=== PATIENT | male | born 1945 | race Caucasian/White ===

== ENCOUNTER 2019-03-25 16:08 | Emergency (ER) | payer MEDICARE, MEDICAID ==
[2019-03-25] MEDS ORDERED: Sodium Chloride 0.9% 10 ML Syringe FLUSH PRN (16:16)
--- NOTE | 2019-03-25 16:31 | EDM.PDOC ---
ED HPI GENERAL MEDICAL PROBLEM - General Chief Complaint: Neuro Symptoms/Deficits Stated Complaint: Slurred speech Time Seen by Provider: 03/25/19 16:10 Source of Information: Reports: Patient History Limitations: Reports: No Limitations - History of Present Illness INITIAL COMMENTS - FREE TEXT/NARRATIVE: 73 YO WM presents to ER with episode of slurred speech and right sided facial droop which began after waking up from a nap. states they layed down for a nap around 1pm and when he woke 2 hours later she noticed some slurred speech and right sided facial droop. Pt was able to walk to his vehicle and was transported by private car to ER. Upon arrival family states his facial droop and slurred speech improved. Pt denies headache, chest pain, dizziness or nausea /vomiting. Pt denies numbness or weakness. Pt without spacial neglect or ataxia. Pt alert and oriented x 4 with a GCS of 15. Pt able to move all extremities without difficulty. Pt with history of metastatic prostate CA. Onset Date: 03/25/19 Onset Time: 13:00 Location: Reports: Head, Face Improves with: Reports: None Worsens with: Reports: Medication Associated Symptoms: Denies: Confusion, Chest Pain, Cough, Diaphoresis, Fever/ Chills, Headaches, Nausea/Vomiting, Rash, Seizure, Shortness of Breath, Syncope , Weakness - Related Data Allergies Allergy/AdvReac Type Severity Reaction Status Date / Time banana Allergy Unknown Shortness Verified 03/25/19 18:03 of Breath latex Allergy Unknown Cannot Verified 03/25/19 18:03 Remember penicillin Allergy Unknown Rash Verified 03/25/19 18:03 Home Meds: Home Meds Valsartan [Diovan] 320 mg PO DAILY 03/01/15 [History] glipiZIDE [Glipizide Xl] 5 mg PO DAILY 03/01/15 [History] Cholecalciferol (Vitamin D3) [Vitamin D3] 3,000 units PO DAILY 11/16/15 [History ] Acetaminophen [Tylenol Extra Strength] 1,000 mg PO Q4H PRN 12/27/15 [History] Calcium Carb/Magnesium Cmb #10 [Orion-Mag] 2 each PO DAILY 12/27/15 [History] Cinnamon Bark [Cinnamon] 500 - 1,000 mg PO DAILY 12/27/15 [History] Ondansetron [Zofran ODT] 4 mg PO TID PRN 12/27/15 [History] atorvaSTATin [Lipitor] 20 mg PO BEDTIME 12/27/15 [History] metFORMIN HCl [Metformin HCl] 750 mg PO BID 12/27/15 [History] Alendronate [Fosamax] 70 mg PO Q7D 04/20/16 [History] Aspirin [Adult Low Dose Aspirin EC] 81 mg PO DAILY 04/20/16 [History] Iron Polysaccharides Complex [Ferrex 150] 300 mg PO DAILY 04/20/16 [History] [place]-3/DHA/Epa/Fish Oil [Fish Oil] 1,200 mg PO DAILY 04/20/16 [History] Diclofenac Sodium 75 mg PO BIDMEALS 08/05/16 [History] Levothyroxine Sodium 150 mcg PO ASDIRECTED 08/05/16 [History] Tamsulosin [Flomax] 0.8 mg PO DAILY 08/05/16 [History] Metoprolol Succinate [Toprol XL] 25 mg PO DAILY 08/19/16 [History] Mometasone Furoate [Nasonex Esko] 2 spray NASBOTH DAILY 03/24/17 [History] Prednisone [IJD: Prednisone] 10 mg PO DAILY 03/24/17 [History] DOCEtaxel [Docetaxel] 60 mg IV WEEKLY 02/22/19 [History] Degarelix [Firmagon] 80 mg SQ Q28D 03/08/19 [History] Zoledronic Acid [Zometa] 4 mg IV Q28D 03/08/19 [History] Past Medical History HEENT History: Reports: Hard of Hearing, Impaired Vision Cardiovascular History: Reports: Angina, High Cholesterol, Hypertension, VA, Stents Respiratory History: Reports: None Gastrointestinal History: Reports: None Genitourinary History: Reports: Prostate Disorder Other Genitourinary History: Treated for Prostate Cancer at [facility] first round of chemo done Wednesday Musculoskeletal History: Reports: Arthritis, Fracture, Other (See Below) Other Musculoskeletal History: Fell about 1 year ago, broke arm, rib, collar bone. Today voices of back trouble -(bulging) MRI in [place] shceduled on December. has been to visual merchandising specialist but due to recent VA has to wait 6 mo before any surgery can be done. Also voices of right foot pain and this is to be looked at by cardiovascular dr on December 21 in [place], Is using walker at home. Neurological History: Reports: CVA Endocrine/Metabolic History: Reports: Diabetes, Type II, Hypothyroidism, Obesity /BMI 30+ Immunologic History: Reports: Immunosuppression Oncologic (Cancer) History: Reports: Prostate - Infectious Disease History Infectious Disease History: Reports: None Other Infectious Disease History: had bad infection in throat wound following thyroidectomy treated with strongest antibiotic they had - Past Surgical History HEENT Surgical History: Reports: None Cardiovascular Surgical History: Reports: Carotid Stents, Other (See Below) GI Surgical History: Reports: Colonoscopy, Hernia, Inguinal Male Surgical History: Reports: Prostate Biopsy Endocrine Surgical History: Reports: None Neurological Surgical History: Reports: None Social & Family History - Family History Family Medical History: Noncontributory - Caffeine Use Caffeine Use: Reports: Soda ED ROS GENERAL - Review of Systems Review Of Systems: See Below Constitutional: Reports: No Symptoms HEENT: Reports: No Symptoms. Denies: Throat Swelling, Vision Change Respiratory: Reports: No Symptoms Cardiovascular: Reports: No Symptoms Endocrine: Reports: No Symptoms GI/Abdominal: Reports: No Symptoms : Reports: No Symptoms Musculoskeletal: Reports: No Symptoms Skin: Reports: No Symptoms Neurological: Reports: Change in Speech. Denies: Confusion, Dizziness, Headache , Numbness, Paresthesia, Pre-Existing Deficit, Seizure, Syncope, Tingling, Tremors, Trouble Speaking, Difficulty Walking, Weakness, Gait Disturbance Psychiatric: Reports: No Symptoms Hematologic/Lymphatic: Reports: No Symptoms Immunologic: Reports: No Symptoms ED EXAM, NEURO - Physical Exam Exam: See Below Exam Limited By: No Limitations General Appearance: Alert, WD/WN, No Apparent Distress Eye Exam: Bilateral Eye: EOMI, PERRL Throat/Mouth: Normal Inspection, Normal Lips, Normal Teeth, Normal Gums, Normal Oropharynx, Normal Voice, No Airway Compromise Head Exam: Atraumatic, Normocephalic Neck: Normal Inspection, Supple, Non-Tender, Full Range of Motion Respiratory/Chest: No Respiratory Distress, Lungs Clear, Normal Breath Sounds, No Accessory Muscle Use, Chest Non-Tender Cardiovascular: Normal Peripheral Pulses, Regular Rate, Rhythm, No Edema, No Gallop, No JVD, No Murmur, No Rub GI/Abdominal: Normal Bowel Sounds, Soft, Non-Tender, No Organomegaly, No Distention, No Abnormal Bruit, No Mass Neurological: Alert, Normal Mood/Affect, Normal Dorsiflexion, CN II-XII Intact, Normal Plantar Flexion, Normal Gait, Normal Reflexes, No Motor/Sensory Deficits , Oriented x 3. No: Abnormal Gait, Ataxia, No Response to Pain, Extensor Response to Pain, Flexor Response to Pain, Withdraws to Pain, Abnormal Finger to Nose, Abnormal Sensation, Abnormal Light Touch, Abnormal Motor, Abnormal Pin Prick, Abn 2 Pt Discrimination, Babinski, Straight Leg Raise (L), Straight Leg Raise (R), Difficulty Walking Back Exam: Normal Inspection, Full Range of Motion, NT Extremities: Normal Inspection, Normal Range of Motion, Non-Tender, No Pedal Edema, Normal Capillary Refill Psychiatric: Normal Affect, Normal Mood Skin Exam: Warm, Dry, Intact, Normal Color, No Rash EKG INTERPRETATION EKG Date: 03/25/19 Time: 16:25 Rhythm: NSR Rate (Beats/Min): 79 [place]: Normal P-Wave: Present QRS: Normal ST-T: Normal QT: Normal Course - Vital Signs Last Recorded V/S: Last Vital Signs Temp 36.6 C 03/25/19 16:36 Pulse 85 03/25/19 16:36 Resp 20 03/25/19 16:36 BP 152/58 H 03/25/19 16:36 Pulse Ox 96 03/25/19 16:36 - Orders/Labs/Meds Orders: Active Orders 24 hr Category Date Time Status Cardiac Monitoring [RC] . DIRECTED Care 03/25/19 16:16 Active EKG Documentation Completion [RC] ASDIRECTED Care 03/25/19 16:17 Active Oxygen Therapy, ED [RC] ASDIRECTED Care 03/25/19 16:16 Active Peripheral IV Care [RC] . DIRECTED Care 03/25/19 16:17 Active Chest 2V [CR] Stat Exams 03/25/19 16:16 Ordered INR,PT,PROTHROMBIN TIME [COAG] Stat Lab 03/25/19 16:30 Results PTT,PARTIAL THROMBOPLSTIN TIME [COAG] Stat Lab 03/25/19 16:30 Results Sodium Chloride 0.9% [Saline Flush] Med 03/25/19 16:16 Active 10 ml FLUSH Q8HR PRN Peripheral IV Insertion Adult [OM.PC] Routine Oth 03/25/19 16:16 Ordered EKG 12 Lead [EK] Routine Ther 03/25/19 16:16 Ordered Medication Orders Sodium Chloride (Saline Flush) 10 ml FLUSH Q8HR PRN PRN Reason: keep vein open Labs: Laboratory Tests 03/25/19 03/25/19 03/25/19 Range/Units 16:30 16:30 16:30 WBC 1.50 L* (5.00-10.00) 10^3/uL RBC 2.60 L (4.50-6.00) 10^6/uL Hgb 7.3 L (13.0-17.0) g/dL Hct 23.0 L (40.0-52.0) % MCV 88.5 D (82.0-92.0) fL MCH 28.1 (27.0-31.0) pg MCHC 31.7 L (32.0-36.0) g/dL RDW 20.6 H (11.5-14.5) % Plt Count 146 L (150-400) 10^3/uL MPV 10.7 H (7.4-10.4) fL Add Manual Diff Yes Neutrophils % (Manual) 67 (50-70) % Band Neutrophils % 2 L (4-12) % Lymphocytes % (Manual) 25 (20-40) % Monocytes % (Manual) 6 (2-8) % Absolute Neutrophils 1.0350 Lymphocytes # (Manual) 0.3750 Monocytes # (Manual) 0.0900 APTT 121.3 H* (23.1-31.3) SEC Sodium 138 (136-145) mmol/L Potassium 4.6 (3.3-5.3) mmol/L Chloride 105 (98-115) mmol/L Carbon Dioxide 26.4 (21.0-32.0) mmol/L Anion Gap 11.2 (5-15) mmol/L BUN 12 (6-25) mg/dL Creatinine 0.77 (0.51-1.17) mg/dL Est Cr Clr Drug Dosing 85.44 mL/min Estimated GFR (MDRD) > 60 mL/min Glucose 101 H (75 - 99) mg/dL Calcium 8.0 L (8.7-10.3) mg/dL Total Bilirubin 0.3 (0.2-1.0) mg/dL AST 15 (15-37) U/L ALT 15 (12-78) U/L Alkaline Phosphatase 50 (46-116) IU/L Creatine Kinase 36 (26-276) U/L CK-MB (CK-2) 0.80 (0.00-4.30) ng/mL Troponin I < 0.04 (0.00-0.070) ng/mL Total Protein 5.2 L (6.4-8.2) g/dL Albumin 2.81 L (3.00-4.80) g/dL Specimen Type Urine Color (YELLOW) Urine Appearance (CLEAR) Urine pH (5.0-9.0) Ur Specific [place] (1.005-1.030) Urine Protein (NEGATIVE) mg/dL Urine Glucose (UA) (NEGATIVE) mg/dL Urine Ketones (NEGATIVE) mg/dL Urine Occult Blood (NEGATIVE) Urine Nitrite (NEGATIVE) Urine Bilirubin (NEGATIVE) Urine Urobilinogen (0.2-1.0) E.U./dL Ur Leukocyte Esterase (NEGATIVE) Urine RBC (0-5) /HPF Urine WBC (0-5) /HPF Ur Epithelial Cells /LPF Hyaline Casts (NEGATIVE) /LPF 03/25/19 Range/Units 17:05 WBC (5.00-10.00) 10^3/uL RBC (4.50-6.00) 10^6/uL Hgb (13.0-17.0) g/dL Hct (40.0-52.0) % MCV (82.0-92.0) fL MCH (27.0-31.0) pg MCHC (32.0-36.0) g/dL RDW (11.5-14.5) % Plt Count (150-400) 10^3/uL MPV (7.4-10.4) fL Add Manual Diff Neutrophils % (Manual) (50-70) % Band Neutrophils % (4-12) % Lymphocytes % (Manual) (20-40) % Monocytes % (Manual) (2-8) % Absolute Neutrophils Lymphocytes # (Manual) Monocytes # (Manual) APTT (23.1-31.3) SEC Sodium (136-145) mmol/L Potassium (3.3-5.3) mmol/L Chloride (98-115) mmol/L Carbon Dioxide (21.0-32.0) mmol/L Anion Gap (5-15) mmol/L BUN (6-25) mg/dL Creatinine (0.51-1.17) mg/dL Est Cr Clr Drug Dosing mL/min Estimated GFR (MDRD) mL/min Glucose (75 - 99) mg/dL Calcium (8.7-10.3) mg/dL Total Bilirubin (0.2-1.0) mg/dL AST (15-37) U/L ALT (12-78) U/L Alkaline Phosphatase (46-116) IU/L Creatine Kinase (26-276) U/L CK-MB (CK-2) (0.00-4.30) ng/mL Troponin I (0.00-0.070) ng/mL Total Protein (6.4-8.2) g/dL Albumin (3.00-4.80) g/dL Specimen Type Urinvoid Urine Color Yellow (YELLOW) Urine Appearance Clear (CLEAR) Urine pH 7.5 (5.0-9.0) Ur Specific [place] 1.010 (1.005-1.030) Urine Protein Negative (NEGATIVE) mg/dL Urine Glucose (UA) Negative (NEGATIVE) mg/dL Urine Ketones Negative (NEGATIVE) mg/dL Urine Occult Blood Negative (NEGATIVE) Urine Nitrite Negative (NEGATIVE) Urine Bilirubin Negative (NEGATIVE) Urine Urobilinogen 0.2 (0.2-1.0) E.U./dL Ur Leukocyte Esterase Negative (NEGATIVE) Urine RBC 0-5 (0-5) /HPF Urine WBC 0-5 (0-5) /HPF Ur Epithelial Cells Rare /LPF Hyaline Casts Not seen (NEGATIVE) /LPF Meds: Medications Generic Name Dose Route Start Last Admin Trade Name Freq PRN Reason Stop Dose Admin Sodium Chloride 10 ml 03/25/19 16:16 Saline Flush FLUSH Q8HR PRN keep vein open - Radiology Interpretation Free Text/Narrative:: Pt with continued slurred speech without any additional neuro deficits. Pt alert and oriented x 4 GCS 15, ambulates without difficulty and NAD. Discussed with Dr Smith- Neuro who recommended stroke workup. No TPA at this time. Dr Bonilla hospitalist accepting Departure - Departure Time of Disposition: 18:14 Disposition: DC/Tfer to Acute Hospital 02 Condition: Poor Clinical Impression: Slurred speech, Pancytopenia, Hypercoagulable state - Discharge Information Referrals: Jerri Pack MD [Primary Care Provider] - Forms: ED Department Discharge, Interfacility Transfer [facility] - My Orders Last 24 Hours: My Active Orders 03/25/19 16:16 Cardiac Monitoring [RC] . DIRECTED Oxygen Therapy, ED [RC] ASDIRECTED Chest 2V [CR] Stat Sodium Chloride 0.9% [Saline Flush] 10 ml FLUSH Q8HR PRN Peripheral IV Insertion Adult [OM.PC] Routine EKG 12 Lead [EK] Routine 03/25/19 16:17 EKG Documentation Completion [RC] ASDIRECTED Peripheral IV Care [RC] . DIRECTED 03/25/19 16:30 INR,PT,PROTHROMBIN TIME [COAG] Stat PTT,PARTIAL THROMBOPLSTIN TIME [COAG] Stat - Assessment/Plan Last 24 Hours: My Active Orders 03/25/19 16:16 Cardiac Monitoring [RC] . DIRECTED Oxygen Therapy, ED [RC] ASDIRECTED Chest 2V [CR] Stat Sodium Chloride 0.9% [Saline Flush] 10 ml FLUSH Q8HR PRN Peripheral IV Insertion Adult [OM.PC] Routine EKG 12 Lead [EK] Routine 03/25/19 16:17 EKG Documentation Completion [RC] ASDIRECTED Peripheral IV Care [RC] . DIRECTED 03/25/19 16:30 INR,PT,PROTHROMBIN TIME [COAG] Stat PTT,PARTIAL THROMBOPLSTIN TIME [COAG] Stat Assessment:: 1. Slurred speech without focal neuro deficit 2. pancytopenia 3. hypercoagulpathy 4. metastatic prostate CA Plan: 1. Discused case with neurology- Dr Smith- admit for further stroke workup- no TPA at this time- Dr Bonilla accepting 2. supportive care 3. oxygen
--- NOTE | 2019-03-25 16:53 | CT ---
[id number] CT/CT Head WO IV EXAM: CT Head WO IV CLINICAL DATA: FACIAL DROOPING, SLURRED SPEECH COMPARISON STUDY: None FINDINGS: No intracranial hemorrhage, extra-axial fluid collection, mass, or acute ischemia. Encephalomalacia involving the left frontal and parieto-occipital lobes consistent with old infarcts. Generalized parenchymal atrophy with scattered areas of nonspecific white matter disease, commonly seen as sequela of chronic microvascular ischemia. Soft tissues are unremarkable. Paranasal sinuses and mastoid air cells are clear. IMPRESSION: No acute intracranial findings. Iron Courtney DO 03/25/19 [id number] Thank you for allowing us to participate in the care of your patient.
[2019-03-25 17:31] LABS: ANION GAP 11.2 mmol/L (5-15); CHLORIDE,CL 105 mmol/L (98-115); SODIUM,NA 138 mmol/L (136-145)
--- NOTE | 2019-03-25 18:28 | CR ---
[id number] RAD/RAD Chest PA And Lateral EXAM: RAD Chest PA And Lateral INDICATION: SLURRED SPEECH. COMPARISON: August 05, 2016. DISCUSSION: Median sternotomy wires. Left chest wall Mediport with tip overlying the upper portion of the superior vena cava. Cardiomediastinal silhouette is stable in size and contour. No infiltrate, effusion, pneumothorax, or edema. Low lung volumes associated vascular crowding. Old partially healed right clavicular fracture. IMPRESSION: No acute cardiopulmonary abnormality. Iron Courtney DO 03/25/19 1826 Thank you for allowing us to participate in the care of your patient.
[2019-03-25 20:14] VITALS: BP 129/45
[2019-03-25 20:15] VITALS: PULSE 88
== END 2019-03-25 19:10 ==
LOC: KA.ED 16:08
DX: R47.81 Slurred speech (principal); D68.59 Other primary thrombophilia; D61.818 Other pancytopenia; C61 Malignant neoplasm of prostate; Z88.0 Allergy status to penicillin; Z79.82 Long term (current) use of aspirin; Z79.84 Long term (current) use of oral hypoglycemic drugs; Z79.899 Other long term (current) drug therapy; E11.9 Type 2 diabetes mellitus without complications; Z86.73 Personal history of transient ischemic attack (TIA), and cerebral infarction without residual deficits; E03.9 Hypothyroidism, unspecified; E66.9 Obesity, unspecified; Z91.040 Latex allergy status; Z91.018 Allergy to other foods
CPT/HCPCS: 70450; 71046; 80053; 81001; 82550; 82553; 84484; 85025; 85610; 85730; 93005; 99284; 99285-25

== ENCOUNTER 2019-04-09 22:25 | Emergency (ER) | payer MEDICARE, MEDICAID ==
--- NOTE | 2019-04-09 23:04 | EDM.PDOC ---
ED HPI GENERAL MEDICAL PROBLEM - General Chief Complaint: General Stated Complaint: TIA Time Seen by Provider: 04/09/19 22:46 Source of Information: Reports: Patient, Family ( and daughter) History Limitations: Reports: No Limitations - History of Present Illness INITIAL COMMENTS - FREE TEXT/NARRATIVE: Patient presents to ER with complaint of weakness and "funny feeling" in left leg. This started at 8:00 pm today and was witnessed by daughter and . He was sitting in an awkward position. Patient had a stroke 2 weeks ago with facial droop and slurred speech which has only partially recovered. He went to [place] with that and was started on aspirin 325 mg daily. At that time he didn' t have any extremity involvement they tell me. Today I notice significant slurred speech and moderate facial droop but they assure me that this is unchanged from the last two weeks. He also has prostate cancer and anemia. He has been getting chemo weekly until three weeks ago and was put on hold. He had a blood transfusion 4 days ago. - Related Data Allergies Allergy/AdvReac Type Severity Reaction Status Date / Time banana Allergy Unknown Shortness Verified 04/09/19 22:40 of Breath latex Allergy Unknown Cannot Verified 04/09/19 22:40 Remember penicillin Allergy Unknown Rash Verified 04/09/19 22:40 Home Meds: Home Meds Cholecalciferol (Vitamin D3) [Vitamin D3] 3,000 units PO DAILY 11/16/15 [History ] Calcium Carb/Magnesium Cmb #10 [Orion-Mag] 2 each PO DAILY 12/27/15 [History] Cinnamon Bark [Cinnamon] 500 - 1,000 mg PO DAILY 12/27/15 [History] Ondansetron [Zofran ODT] 4 mg PO TID PRN 12/27/15 [History] atorvaSTATin [Lipitor] 20 mg PO BEDTIME 12/27/15 [History] metFORMIN HCl [Metformin HCl] 750 mg PO DAILY 12/27/15 [History] Iron Polysaccharides Complex [Ferrex 150] 150 mg PO ASDIRECTED 04/20/16 [History ] Tamsulosin [Flomax] 0.8 mg PO BEDTIME 08/05/16 [History] Metoprolol Succinate [Toprol XL] 25 mg PO DAILY 08/19/16 [History] Mometasone Furoate [Nasonex [place]] 2 spray NASBOTH DAILY PRN 03/24/17 [History] DOCEtaxel [Docetaxel] 60 mg IV WEEKLY 02/22/19 [History] Degarelix [Firmagon] 80 mg SQ Q28D 03/08/19 [History] Zoledronic Acid [Zometa] 4 mg IV Q28D 03/08/19 [History] ALPRAZolam [Xanax] 0.25 mg PO Q12H PRN 03/25/19 [History] Enzalutamide [Xtandi] 160 mg PO DAILY 03/25/19 [History] Furosemide [Lasix] 40 mg PO DAILY PRN 03/25/19 [History] Hydrochlorothiazide [Microzide] 12.5 mg PO DAILY 03/25/19 [History] Hydrocodone/Acetaminophen [Hydrocodon-Acetaminophen 5-325] 1 tab PO Q8H PRN 06/03 [History] Levothyroxine 175 mcg PO DAILY 03/25/19 [History] Losartan [Cozaar] 100 mg PO DAILY 03/25/19 [History] Tolterodine Tartrate [Detrol LA] 2 mg PO BEDTIME 03/25/19 [History] Aspirin 325 mg PO DAILY 04/05/19 [History] Omeprazole 20 mg PO DAILY 04/09/19 [History] predniSONE [Prednisone] 10 mg PO DAILY 04/09/19 [History] Past Medical History HEENT History: Reports: Hard of Hearing, Impaired Vision Cardiovascular History: Reports: Angina, CAD, High Cholesterol, Hypertension, [place] , Stents Respiratory History: Reports: None Gastrointestinal History: Reports: None Genitourinary History: Reports: Prostate Disorder Other Genitourinary History: Treated for Prostate Cancer at [facility] first round of chemo done Wednesday Musculoskeletal History: Reports: Arthritis, Back Pain, Chronic, Fracture, Osteoporosis Other Musculoskeletal History: CHRONIC BACK PAIN. CHRONIC WEAKNESS OF THE RIGHT LOWER EXTREMITY SINCE DIAG. OF [facility] Neurological History: Reports: CVA Endocrine/Metabolic History: Reports: Diabetes, Type II, Hypothyroidism, Obesity /BMI 30+ Hematologic History: Reports: Blood Transfusion(s) Immunologic History: Reports: Immunosuppression Oncologic (Cancer) History: Reports: Bone, Prostate, Thyroid Dermatologic History: Reports: Eczema - Infectious Disease History Infectious Disease History: Reports: Mumps Other Infectious Disease History: had bad infection in throat wound following thyroidectomy treated with strongest antibiotic they had - Past Surgical History HEENT Surgical History: Reports: None Cardiovascular Surgical History: Reports: Carotid Stents, Coronary Artery Bypass Other Cardiovascular Surgeries/Procedures: CAB WITH GRAFTING GI Surgical History: Reports: Colonoscopy, Hernia, Inguinal Male Surgical History: Reports: Prostate Biopsy Endocrine Surgical History: Reports: None Neurological Surgical History: Reports: None Musculoskeletal Surgical History: Reports: Arthroscopic Knee Other Musculoskeletal Surgeries/Procedures:: BIALTERAL Dermatological Surgical History: Reports: None Social & Family History - Family History Family Medical History: Noncontributory - Caffeine Use Caffeine Use: Reports: None ED ROS GENERAL - Review of Systems Review Of Systems: See Below Constitutional: Reports: Weakness (left leg). Denies: Fever, Chills, Malaise, Diaphoresis HEENT: Denies: Vision Change Respiratory: Denies: Shortness of Breath Cardiovascular: Denies: Chest Pain, Lightheadedness, Syncope GI/Abdominal: Denies: Abdominal Pain, Diarrhea, Nausea, Vomiting : Reports: No Symptoms Musculoskeletal: Reports: No Symptoms Skin: Reports: Pallor Neurological: Denies: Confusion, Dizziness, Headache, Seizure, Syncope, Change in Speech Psychiatric: Denies: Agitation, Anxiety, Confusion Hematologic/Lymphatic: Reports: Anemia ED EXAM, GENERAL - Physical Exam Exam: See Below Exam Limited By: No Limitations General Appearance: Alert, WD/WN, No Apparent Distress Eye Exam: Bilateral Eye: EOMI, Normal Inspection, PERRL Ears: Normal External Exam, Hearing Grossly Normal Nose: Normal Inspection, No Blood Throat/Mouth: Normal Lips, No Airway Compromise, Other (moderate left facial droop with moderate slurred speech noted; unchanged from recent baseline per family) Head: Atraumatic, Normocephalic Neck: Normal Inspection, Supple, Non-Tender, Full Range of Motion Respiratory/Chest: No Respiratory Distress, Lungs Clear, Normal Breath Sounds, No Accessory Muscle Use Cardiovascular: Regular Rate, Rhythm, No Edema, No Gallop, No JVD, No Murmur GI/Abdominal: Normal Bowel Sounds, Soft, Non-Tender, No Organomegaly, No Distention Back Exam: Normal Inspection, Full Range of Motion. No: CVA Tenderness (L), CVA Tenderness (R) Extremities: Normal Range of Motion, Non-Tender, No Pedal Edema, Normal Capillary Refill, Other (Upper extremities are equal 5/5 strength; left leg is 4.5/5 compared to 5/5 on right with straight leg raise. Dorsiflexion and plantar flexion are 5/5 and symmetric) Neurological: Alert, Oriented, CN II-XII Intact (except as above), Normal Cognition, No Motor/Sensory Deficits Psychiatric: Normal Affect, Normal Mood Skin Exam: Warm, Dry, Intact, No Rash, Pallor Course - Vital Signs Last Recorded V/S: Last Vital Signs Temp 97.4 F 04/09/19 22:51 Pulse 87 04/09/19 22:51 Resp 18 04/09/19 22:51 BP 144/76 H 04/09/19 22:51 Pulse Ox 94 L 04/09/19 22:51 - Orders/Labs/Meds Orders: Active Orders 24 hr Category Date Time Status EKG Documentation Completion [RC] ASDIRECTED Care 04/09/19 22:51 Active Head wo Cont [CT] Stat Exams 04/09/19 23:12 Ordered EKG 12 Lead [EK] Routine Ther 04/09/19 22:51 Ordered Labs: Laboratory Tests 04/09/19 04/09/19 Range/Units 22:47 22:47 WBC 6.07 (5.00-10.00) 10^3/uL RBC 2.69 L (4.50-6.00) 10^6/uL Hgb 7.3 L (13.0-17.0) g/dL Hct 23.3 L (40.0-52.0) % MCV 86.6 (82.0-92.0) fL MCH 27.1 (27.0-31.0) pg MCHC 31.3 L (32.0-36.0) g/dL RDW 18.4 H (11.5-14.5) % Plt Count 247 D (150-400) 10^3/uL MPV 9.5 (7.4-10.4) fL Immature Gran % (Auto) 0.5 (0.0-5.0) % Neut % (Auto) 76.5 H (50.0-70.0) % Lymph % (Auto) 13.0 L (20.0-40.0) % Greer % (Auto) 7.9 (2.0-8.0) % Eos % (Auto) 1.6 (1.0-3.0) % Baso % (Auto) 0.5 (0.0-1.0) % Immature Gran # (Auto) 0.03 (0.00-0.50) 10^3/uL Neut # (Auto) 4.64 (2.50-7.00) 10^3/uL Lymph # (Auto) 0.79 L (1.00-4.00) 10^3/uL Greer # (Auto) 0.48 (0.10-0.80) 10^3/uL Eos # (Auto) 0.10 (0.10-0.30) 10^3/uL Baso # (Auto) 0.03 (0.00-0.10) 10^3/uL Sodium 142 (136-145) mmol/L Potassium 3.9 (3.3-5.3) mmol/L Chloride 105 (98-115) mmol/L Carbon Dioxide 25.4 (21.0-32.0) mmol/L Anion Gap 15.5 H (5-15) mmol/L BUN 14 (6-25) mg/dL Creatinine 0.66 (0.51-1.17) mg/dL Est Cr Clr Drug Dosing 96.44 mL/min Estimated GFR (MDRD) > 60 mL/min Glucose 106 H (75 - 99) mg/dL Calcium 8.5 L (8.7-10.3) mg/dL Total Bilirubin 0.3 (0.2-1.0) mg/dL AST 17 (15-37) U/L ALT 13 (12-78) U/L Alkaline Phosphatase 65 (46-116) IU/L Total Protein 5.6 L (6.4-8.2) g/dL Albumin 2.48 L (3.00-4.80) g/dL - Re-Assessments/Exams Free Text/Narrative Re-Assessment/Exam: 04/09/19 23:51 NIHSS is score of 2. Hg is 7.3 which is in the range of baseline. Discussed case with Dr. Edmond, neurologist at [facility] who accepted for transfer to ER there. TPA was discussed and decided against due to his recent stroke and anemia, along with micro bleeds on brain MRI per Dr. Edmond. Patient is stable at transfer and on repeat exam the left leg appears to be improving a little but still weaker than the right on leg raise. Departure - Departure Time of Disposition: 23:50 Disposition: DC/Tfer to Acute Hospital 02 Condition: Fair Clinical Impression: Stroke determined by clinical assessment - Discharge Information Forms: ED Department Discharge - My Orders Last 24 Hours: My Active Orders 04/09/19 22:51 EKG Documentation Completion [RC] ASDIRECTED EKG 12 Lead [EK] Routine 04/09/19 23:12 Head wo Cont [CT] Stat - Assessment/Plan Last 24 Hours: My Active Orders 04/09/19 22:51 EKG Documentation Completion [RC] ASDIRECTED EKG 12 Lead [EK] Routine 04/09/19 23:12 Head wo Cont [CT] Stat
[2019-04-09 23:13] LABS: ANION GAP 15.5 mmol/L (5-15); CHLORIDE,CL 105 mmol/L (98-115); SODIUM,NA 142 mmol/L (136-145)
[2019-04-10 01:42] VITALS: BP 136/70
--- NOTE | 2019-04-10 08:57 | CT ---
[id number] CT/CT Head WO IV EXAM: CT Head WO IV CLINICAL DATA: LEFT LEG WEAKNESS COMPARISON: CORRELATION IS MADE WITH THE EXAM OF MARCH 22, 2019 FINDINGS: Old encephalomalacic changes are seen in the left parietal region. There is no mass or mass effect. There is no hemorrhage or hydrocephalus. There are no extra-axial fluid collections. Chronic appearing paranasal sinus inflammatory changes are seen. IMPRESSION: NO PLAIN CT EVIDENCE OF ACUTE INTRACRANIAL PROCESS. Jv Martin MD 04/10/19 0856 Thank you for allowing us to participate in the care of your patient.
== END 2019-04-10 00:10 ==
LOC: KA.ED 22:25
DX: I63.9 Cerebral infarction, unspecified (principal); R29.702 NIHSS score 2; I10 Essential (primary) hypertension; I25.10 Atherosclerotic heart disease of native coronary artery without angina pectoris; E11.9 Type 2 diabetes mellitus without complications; E03.9 Hypothyroidism, unspecified; E78.00 Pure hypercholesterolemia, unspecified; Z91.018 Allergy to other foods; Z91.040 Latex allergy status; Z88.0 Allergy status to penicillin; Z79.899 Other long term (current) drug therapy; Z79.84 Long term (current) use of oral hypoglycemic drugs; Z79.82 Long term (current) use of aspirin
CPT/HCPCS: 36415; 70450; 80053; 85025; 93005; 99285; 99285-25